=== PATIENT | female | born 1960 | race Caucasian/White ===

== ENCOUNTER → 2016-07-25 | Outpatient (CLI) | payer BC ==
[~2016-07-25] MED LIST: ASPIRIN 81MG TA81 MG PO; ATORVASTATIN CA20 M1 PO; BACLOFEN 10MG T10 MG PO; CALTRATE 600 +1 TA1 PO; CLARITIN10 MG PO; CYCLOBENZAPRINE10 MG PO; DICLOFENAC SODI75 M2 PO; LISINOPRIL/HCTZ1 TA3 PO; METFORMIN 500M500 M1 PO; MULTI VITAMINS1 TA1 PO; OMEPRAZOLE40 MG PO; VITAMIN B11000 MCG/M IM
== END ==
LOC: LAB 13:54
DX: R53.83 Other fatigue (principal); R53.81 Other malaise; R42 Dizziness and giddiness; E55.9 Vitamin D deficiency, unspecified; E11.9 Type 2 diabetes mellitus without complications

== ENCOUNTER → 2017-02-07 | Outpatient (CLI) | payer BC ==
[2017-02-07 18:57] LABS: BUN 23 mg/dL (7-18)
[2017-02-07 19:58] LABS: GFR (ESTIMATED) 74 ML/MIN (59-)
== END ==
LOC: LAB 17:26
PROVIDERS: Internal Medicine Adolescent Medicine
DX: I10 Essential (primary) hypertension (principal)

== ENCOUNTER → 2017-04-11 | Outpatient (CLI) | payer BC ==
[2017-04-13 08:47] LABS: Iron 36 ug/dL (27-159); Iron Saturation 7 % (15-55); UIBC 490 ug/dL (131-425)
[2017-04-13 09:38] LABS: Folate (Folic Acid) >20.0 ng/mL (>3.0); Vitamin B12 859 pg/mL (211-946)
== END ==
LOC: LAB 16:56
PROVIDERS: Internal Medicine Adolescent Medicine
DX: D64.9 Anemia, unspecified (principal)

== ENCOUNTER 2017-05-31 08:05 | Day surgery (SDC) | payer BC ==
--- NOTE | 2017-05-31 09:26 | Operative Note ---
Surgeon/Diagnoses Surgeon/[employer](s) Date of procedure: 05/31/17 Surgeon: MD Marcelino Ibarra Diagnoses Pre-op diagnosis: Iron deficiency anemia Gastroesophageal reflux History of colon polyps Mild hemorrhoids Sigmoid diverticulosis Post-op diagnosis Same as preoperative diagnoses, with the addition of the following: Mild gastritis Small gastric cardia polyp Procedure Procedure Procedure: Esophagogastroduodenoscopy with biopsy Colonoscopy (limited secondary to poor bowel preparation) Indications: MARIANNE HODGE is a 56 year-old Female with a history of iron deficiency anemia. She does have a history of gastroesophageal reflux, as well as colon polyps. Her last colonoscopy was just over 2 years ago and she is due for short-term repeat secondary to moderate bowel preparation. Hemorrhoidal cushions and sigmoid diverticulosis were also noted on prior evaluation. Some adenomatous polyps were removed. Findings: Gastroesophageal junction at 38 cm Mild gastritis Fairly small gastric cardia polyp Bowel preparation very poor Procedure Description: After informed consent was obtained, the patient was taken to the endoscopy suite. IV sedation ensued after she was transferred to the LEFT lateral decubitus position. The gastroscope was advanced. The gastroesophageal junction was at 38 cm. The stomach was entered. Retroflexion revealed a small gastric cardia polyp. Mild gastritis was seen. The polyp was excised with cold biopsy forceps. A biopsy of the antrum was also obtained. The pylorus was intubated. The duodenal mucosa appeared relatively normal. The gastroscope was carefully removed. Digital rectal exam revealed no significant abnormality. Minimal cushions were seen. The colonoscope was placed in position. The entire colon was evaluated. Bowel preparation was poor and large volume irrigation and suctioning was used to somewhat improved visualization. No significant abnormalities were noted; however, as stated above visualization was quite limited. The colonoscope was carefully removed and the patient was transferred to recovery. EBL (ml): 1 Anesthesia: IV sedation with 7 mg of Versed and 100 g of fentanyl Complications: No immediate with the exception of poor bowel preparation Specimens: Gastric cardia polyp Antral biopsy Disposition Disposition: Stable to recovery from where she will be discharged home. She will follow-up in one week. Further evaluation with regard to anemia will be ongoing and she will still require relatively short-term repeat colonoscopy in less than 2 years. at [id number]
[2017-05-31 11:29] VITALS: BP 123/58
== END 2017-05-31 10:15 | disposition home or self-care (01) ==
LOC: SDC 08:05
PROVIDERS: Surgery
PROC: 0DB68ZX Excision of Stomach, Via Natural or Artificial Opening Endoscopic, Diagnostic (ICD-10-PCS; 2017-05-31)
PROC: 0DJD8ZZ Inspection of Lower Intestinal Tract, Via Natural or Artificial Opening Endoscopic (ICD-10-PCS; principal; 2017-05-31 08:30)
DX: D50.9 Iron deficiency anemia, unspecified (principal); Z09 Encounter for follow-up examination after completed treatment for conditions other than malignant neoplasm; Z86.010 Personal history of colon polyps; K57.30 Diverticulosis of large intestine without perforation or abscess without bleeding; K64.9 Unspecified hemorrhoids; K21.9 Gastro-esophageal reflux disease without esophagitis; K29.70 Gastritis, unspecified, without bleeding; K31.7 Polyp of stomach and duodenum